=== PATIENT | male | born 1970 | race African-American/Black ===

== ENCOUNTER 2017-08-14 16:28 | Day surgery (SDC) | payer OTHER ==
[2017-08-14 16:50] VITALS: BP 162/115; PULSE 62; RESP 18; TEMP 98; O2SAT 97
[2017-08-14] MEDS ORDERED: HYDR-3801 PO (16:50)
[2017-08-14] MEDS ORDERED: AMLO10TA2 PO (16:56)
[2017-08-14] MEDS ORDERED: CARV3.12 PO (16:56)
[2017-08-14] MEDS ORDERED: ISOS5TAB (16:56)
[2017-08-14 17:50] VITALS: BP 184/124; PULSE 65; O2SAT 97
[2017-08-14] MEDS ORDERED: SODIUM CHLORIDE 0.9% FLUSH 10 ML FLUSH IV FLUSH PRN (18:00)
[2017-08-14] MEDS ORDERED: HEPARIN SODIUM - IV 2,000 UNITS/2 ML VIAL IV FLUSH PRN (18:00)
--- NOTE | 2017-08-14 18:01 | RADRPT ---
EXAM DATE/TIME: 08/14/2017 17:15 [facility] COMPARISON: No previous studies available for comparison. INDICATIONS : Patient with history of end-stage renal disease in need of non tunnelled dialysis catheter placement. MEDICAL HISTORY : ESRD, Anemia, HTN, Hyperkalemia, Angina SURGICAL HISTORY : AV fistula, Dialysis catheter ENCOUNTER: Initial ACUITY: 1 day PAIN SCORE: 0/10 FLUORO TIME: 0.7 minutes IMAGE SERIES: 1 ACCESS: Right internal jugular vein DEVICE(S): 1.) 14 [place] dual lumen 15 cm Schon catheter PROCEDURE : 1. Ultrasound guided venipuncture. 2. Fluoroscopic guidance. 3. Central line placement. The risks, benefits and alternatives to the procedure were explained and verbal and written consent w as obtained. The site was prepped in sterile fashion. Full sterile technique was used, including ca p, mask, sterile gloves and gown and a large sterile sheet. Hand hygiene and 2% chlorhexidine prep w as utilized per protocol for cutaneous antisepsis with appropriate dry time for site. Sterile gel an d sterile probe cover were utilized for ultrasound guidance. The skin and subcutaneous tissues were infiltrated with local anesthetic solution. A suitable site a reginaldo the vein was selected with ultrasound and fluoroscopic guidance. A small incision was made. Th e vein was accessed under direct ultrasound visualization using the micropuncture technique. The brenden ropuncture set was exchanged for a 0.035 wire. The tract was dilated. The catheter was advanced int o position under direct fluoroscopic visualization. The catheter was fixed in place with suture and a sterile dressing was applied. The patient tolerated the procedure well and there were no complications. CONCLUSION: Uncomplicated line placement as above. Jerry Almaguer MD on August 14, 2017 at 17:59 Board Certified Radiologist. This report was verified electronically.
== END 2017-08-14 18:12 | disposition home or self-care (01) ==
LOC: HROP 16:28 → HRIP 16:35 → HROP 18:12
PROVIDERS: ATTEND Internal Medicine Nephrology
DX: Z45.2 Encounter for adjustment and management of vascular access device (principal); N18.6 End stage renal disease; I12.0 Hypertensive chronic kidney disease with stage 5 chronic kidney disease or end stage renal disease; E87.5 Hyperkalemia
CPT/HCPCS: 36556; 76937; 77001; C1752; J1644

== ENCOUNTER 2017-08-24 09:08 | Day surgery (SDC) | payer OTHER ==
[~2017-08-24] VITALS: Ht 180.3 cm; Wt 73.1 kg
[~2017-08-24 09:08] MED LIST: AMLO10TA2 PO; CARV3.12 PO; HYDR-3801 PO; ISOS5TAB
[2017-08-24 09:36] VITALS: BP 159/82; PULSE 73; RESP 20; TEMP 97.9; O2SAT 99
[2017-08-24 10:06] LABS: AUTOMATED NEUTROPHIL # 5.6 TH/MM3 (1.8-7.7); BASOPHIL # 0.1 TH/MM3 (0-0.2); BASOPHIL % 1.3 % (0.0-2.0); EOSINOPHIL # 0.1 TH/MM3 (0-0.4); EOSINOPHIL % 1.6 % (0.0-4.0); HEMATOCRIT 36.6 % (39.0-51.0); HEMOGLOBIN 12.6 GM/DL (13.0-17.0); LYMPH % 24.7 % (9.0-44.0); LYMPHOCYTE # 2.2 TH/MM3 (1.0-4.8); MEAN CELL VOLUME 85.1 FL (80.0-100.0); MEAN CORPUSCULAR HEMOGLOBIN 29.2 PG (27.0-34.0); MEAN CORPUSCULAR HGB CONC 34.4 % (32.0-36.0); MONO % 8.2 % (0.0-8.0); MONOCYTE # 0.7 TH/MM3 (0-0.9); NEUT % 64.2 % (16.0-70.0); PLATELET COUNT 275 TH/MM3 (150-450); RED CELL DISTRIBUTION WIDTH 13.2 % (11.6-17.2); WHITE BLOOD COUNT 8.7 TH/MM3 (4.0-11.0)
[2017-08-24 10:11] LABS: PROTHROMBIN TIME - PATIENT 10.5 SEC (9.8-11.6)
[2017-08-24 10:34] LABS: BICARBONATE 27.2 MEQ/L (21.0-32.0); CALCIUM 8.4 MG/DL (8.5-10.1); CREATININE 2.41 MG/DL (0.60-1.30)
[2017-08-24] MEDS ORDERED: fentaNYL CITRATE 250 MCG/5 ML AMP ONE (12:58)
[2017-08-24] MEDS ORDERED: MIDAZOLAM HCL 5 MG/5 ML VIAL ONE (12:58)
[2017-08-24] MEDS ORDERED: IODIXANOL 320 MG/ML 50 ML VIAL (for RAD SPEC) I-ARTERIAL ONE (14:00)
[2017-08-24] MEDS ORDERED: ALTEPLASE RECOMBINANT 2 MG VIAL ONE (15:00)
[2017-08-24] MEDS ORDERED: hydrALAZINE HCL 20 MG/ML VIAL IV PRN (15:00)
[2017-08-24] MEDS ORDERED: MIDAZOLAM HCL 2 MG/2 ML VIAL ONE (15:19)
[2017-08-24] MEDS ORDERED: HEPARIN SODIUM - IV 10,000 UNITS/10 ML VIAL ONE (15:41)
[2017-08-24 16:00] VITALS: BP 165/106; PULSE 76; RESP 18; TEMP 98.3; O2SAT 100
[2017-08-24 16:15] VITALS: BP 181/111; PULSE 77; RESP 18; O2SAT 97
--- NOTE | 2017-08-24 16:28 | RADRPT ---
EXAM DATE/TIME: 08/24/2017 00:00 [facility] COMPARISON: No previous studies available for comparison. INDICATIONS : Patient with history of kidney disease in need of non tunnelled dialysis catheter removal. MEDICAL HISTORY : HTN, Kidney disease, Dialysis SURGICAL HISTORY : Dialysis catheter, Left upper arm fistula ENCOUNTER: Subsequent ACUITY: 1 week PAIN SCORE: 0/10 IMAGE SERIES: 0 PROCEDURE : 1. Temporary central venous catheter removal. The prescribed catheter was removed intact and hemostasis was achieved with direct pressure. The sit e was dressed appropriately. The patient tolerated the procedure well. CONCLUSION: Uncomplicated catheter removal. Abe Ennis MD on August 24, 2017 at 16:26 Board Certified Radiologist. This report was verified electronically.
[2017-08-24 16:30] VITALS: BP 171/107; PULSE 77; RESP 18; O2SAT 98
[2017-08-24 17:00] VITALS: BP 170/98; PULSE 78; RESP 16; O2SAT 98
[2017-08-24 17:30] VITALS: BP 175/112; PULSE 76; RESP 16; O2SAT 98
--- NOTE | 2017-08-25 07:39 | RADRPT ---
EXAM DATE/TIME: 08/24/2017 13:18 [facility] COMPARISON: No previous studies available for comparison. INDICATIONS : 46-year-old male with history of left upper extremity fistula. Patient was noted to have facial dysfu nction approximately 3 weeks ago and has since missed multiple appointments for fistulogram evaluatio n. On exam, there is an aneurysmal left approximately cephalic fistula with a bounding pulse. MEDICAL HISTORY : HTN, Kidney disease, Dialysis SURGICAL HISTORY : Dialysis catheter, Left upper arm fistula ENCOUNTER: Initial ACUITY: 3 weeks PAIN SCORE: 0/10 FLUORO TIME: 28.3 minutes IMAGE SERIES: 9 ACCESS SITE: Left AV Fistula SEDATION TIME: 150 minutes CONTRAST: 1.) 35 cc Visipaque (iodixanol) MEDICATION(S): 1.) 7 mg midazolam (Versed) IV 2.) 350 mcg fentanyl (Sublimaze) IV DEVICE(S): 1.) Left AV fistula 4F [id number] Infusion catheter 2.) Left AV fistula INSIDE SALES balloon [place] [id number] 75CM 3.) Left AV fistula INSIDE SALES balloon [place] [id number] 75CM 4.) Left AV fistula stent (self expanding) EV3 Everflex [id number] 120CM 5.) Left AV fistula INSIDE SALES balloon Plier Worker [id number] 75CM 6.) Left AV fistula stent (self expanding) EV3 Protege GPS [id number] 80CM PROCEDURE : 1. Left upper extremity fistula gram 2. TPA thrombolysis of central cephalic outflow vein 3. 6 mm, 7 mm and 10 mm angioplasty of the central cephalic outflow vein 4. Placement of 7 mm and 9 mm self-expanding stents in the central cephalic outflow vein 7. Upper e xtremity venogram. 5. Conscious sedation with continuous EKG and oximetry monitoring. The risks, benefits and alternatives to the procedure were explained and verbal and written consent w as obtained. The site was prepped in sterile fashion. Full sterile technique was used, including ca p, mask, sterile gloves and gown and a large sterile sheet. Hand hygiene and 2% chlorhexidine and/or betadine/alcohol prep was utilized per protocol for cutaneous antisepsis. Sterile gel and sterile p robe cover were utilized for ultrasound guidance. The skin and subcutaneous tissues were infiltrated with local anesthetic solution. The proximal cephalic outflow vein was accessed with a micropuncture needle and a dilator was placed. Venography performed through the dilator demonstrated an aneurysmal proximal cephalic outflow vein e xtending to the mid humerus level with large collaterals. Dilator with subsequent exchanged for a 6 F rench sheath. 4 [place] catheter was then advanced to the mid cephalic vein at the junction of the lar ge collaterals and venography again performed. This confirms occlusion of the cephalic outflow vein a t this level with large retrograde collaterals. Following multiple manipulations, a Glidewire was suc cessfully advanced through the occlusion but but could only be advanced by approximately 5 cm. Cathet er was advanced over the wire and limited contrast injection again confirmed mature chronic appearing thrombus in the central cephalic vein. Multiple attempts to advanced the wire again were unsuccessfu l. Therefore, a retrograde or puncture was made in the central cephalic vein with a second micropunct ure needle and subsequently a dilator was placed. Guidewire was then successfully advanced retrograde which allow for cannulation of the remainder of the thrombosed central cephalic vein. The catheter w as successfully advanced following multiple attempts to the cephalic arch and venography demonstrated patency of the central cephalic arch and central outflow veins. 6 mm angioplasty was subsequently pe rformed throughout the central cephalic vein. Next, 10 mg of TPA were instilled throughout the thromb osed central cephalic vein and allowed to dwell for 35 minutes. Follow up venography demonstrated no significant improvement with again chronic mature appearing thrombus noted. The notable radiopacity w as then performed throughout the thrombosed segment and followup echography demonstrated minimal irre gular channel through this chronic thrombus. Therefore, decision was made to attempt to salvage stent placement. 7 x 200 mm stent was deployed centrally and subsequently extended with additional 9 x 80 mm stent. Both stents were subsequently dilated with 7 mm balloons. Followup venography demonstrated reestablished flow through the stent and into the central cephalic arch. There was reestablishment of an appropriate thrill in the fistula. Therefore, procedure was terminated at this time. The patient tolerated the procedure well and there were no complications. Conscious sedation was per formed with the prescribed dosages and duration as above in the presence of an independent trained ra diology nurse to assist in the monitoring of the patient. EKG and oximetry remained stable throughou t the procedure. CONCLUSION: 1. 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 2. Extended from lysis attempt yielded little improvement. Therefore, salvage stent placement was per formed with 7 mm and 9 mm self-expanding stents. The stents now extend to the mid humerus level. This was marked on the patient's skin. There is sufficient proximal fistula to allow for cannulation. Findings were personally discussed with Dr. Mcfarlane's nurse. Recommend surgical evaluation for poss ible fistula revision and/or placement of new fistula. Abe Ennis MD on August 25, 2017 at 7:22 Board Certified Radiologist. This report was verified electronically.
== END 2017-08-24 17:49 | disposition home or self-care (01) ==
LOC: HROP 09:08 → HRIP 09:17 → HROP 17:49
PROVIDERS: ATTEND Internal Medicine Nephrology
DX: N18.6 End stage renal disease (principal); Z99.2 Dependence on renal dialysis; I10 Essential (primary) hypertension; I82.612 Acute embolism and thrombosis of superficial veins of left upper extremity
CPT/HCPCS: 36906; 80048; 85025; 85610; 85730; 99152; 99153; C1725; C1757; C1769; C1876; C1887; C1894; J0360; J1644; J2250; J2997; J3010; Q9967